=== PATIENT | female | born 1955 | race American Indian/Alaskan Native ===

== ENCOUNTER 2018-06-13 10:55 | Emergency (ER) | payer MEDICAID ==
--- NOTE | 2018-06-13 12:10 | Emergency Department Report ---
ED Lower Extremity HPI - General Chief Complaint: Extremity Injury, Lower Stated Complaint: TWISTED (R) KNEE Time Seen by Provider: 06/13/18 11:40 Source: patient Mode of arrival: Wheelchair Limitations: No Limitations - History of Present Illness Initial Comments: Patient is a 62-year-old female that presents emergency room with complaints of right knee pain started yesterday. Patient states the pain is 10 out of 10 and is worsening. Patient states she was raking leaves yesterday afternoon and twisted her knee. Patient denies fall. Patient denies trauma. Patient denies loss of consciousness. Patient denies chest pain shortness of breath. Patient states the right knee is swelling as well. MD Complaint: knee injury -: Sudden Injury: Knee: Right Type of Injury: eversion Place: home Severity: severe Severity scale (0 -10): 10 Improves With: rest Worsens With: weight bearing, movement, palpation Context: other (twisting injury) Associated Symptoms: swelling, able to partially bear weight. denies: numbness, tingling - Related Data Previous Rx's Medication Instructions Recorded Last Taken Type Tramadol HCl [Ultram] 50 mg PO Q4HR PRN #12 tablet 06/13/18 Unknown Rx Allergies Allergy/AdvReac Type Severity Reaction Status Date / Time No Known Allergies Allergy Unverified 06/13/18 11:07 ED Review of Systems ROS: Stated complaint: TWISTED (R) KNEE Other details as noted in HPI Constitutional: denies: chills, fever Eyes: denies: eye pain, eye discharge, vision change ENT: denies: ear pain, throat pain Respiratory: denies: cough, shortness of breath, wheezing Cardiovascular: denies: chest pain, palpitations Endocrine: no symptoms reported Gastrointestinal: denies: abdominal pain, nausea, diarrhea Genitourinary: denies: urgency, dysuria, discharge Musculoskeletal: denies: back pain, joint swelling, arthralgia Skin: denies: rash, lesions Neurological: denies: headache, weakness, paresthesias Psychiatric: denies: anxiety, depression Hematological/Lymphatic: denies: easy bleeding, easy bruising ED Past Medical Hx - Past Medical History Previous Medical History?: Yes Hx Hypertension: Yes Hx Diabetes: Yes Hx COPD: Yes Additional medical history: MV prolapse - Surgical History Past Surgical History?: No - Family History Family history: no significant - Social History Smoking Status: Never Smoker Substance Use Type: None - Medications Home Medications: Home Medications Medication Instructions Recorded Confirmed Last Taken Type Tramadol HCl [Ultram] 50 mg PO Q4HR PRN #12 tablet 06/13/18 Unknown Rx ED Physical Exam - General Limitations: No Limitations General appearance: alert, in no apparent distress - Head Head exam: Present: atraumatic, normocephalic - Eye Eye exam: Present: normal appearance - ENT ENT exam: Present: mucous membranes moist - Neck Neck exam: Present: normal inspection - Respiratory Respiratory exam: Present: normal lung sounds bilaterally. Absent: respiratory distress - Cardiovascular Cardiovascular Exam: Present: regular rate, normal rhythm. Absent: systolic murmur, diastolic murmur, rubs, gallop - GI/Abdominal GI/Abdominal exam: Present: soft, normal bowel sounds - Extremities Exam Extremities exam: Present: tenderness (right knee tenderness. Right knee swelling noted), joint swelling (right knee swelling noted. Other joints within normal limits). Absent: normal capillary refill, pedal edema, calf tenderness - Back Exam Back exam: Present: normal inspection - Neurological Exam Neurological exam: Present: alert, oriented X3 - Psychiatric Psychiatric exam: Present: normal affect, normal mood - Skin Skin exam: Present: warm, dry, intact, normal color. Absent: rash ED Course Vital Signs 06/13/18 06/13/18 11:05 13:00 Temperature 97.9 F 98.5 F Pulse Rate 94 H 70 Respiratory 18 13 Rate Blood Pressure 155/84 Blood Pressure 144/82 [Left] O2 Sat by Pulse 92 99 Oximetry - Reevaluation(s) Reevaluation #1: Right knee x-ray pending 06/13/18 12:10 Discussed results with patient. Patient's x-rays negative for fracture. Patient will need follow-up with an orthopedist as well as an MRI. In discharge instructions. Patient voiced understanding of discharge instructions. 06/13/18 12:42 Knee immobilizer placed by nurse. Knee immobilizer in good place and neurovascular still intact. Knee immobilizer was placed due to possible knee instability and comfort. Patient will be discharged home. Patient given disc harged. 06/13/18 12:50 ED Lower Extremity MDM - Radiology Data Radiology results: report reviewed, image reviewed RIGHT KNEE RADIOGRAPHS INDICATION: Trauma, pain. COMPARISON: None similar at this institution. FINDINGS: AP, lateral and oblique right knee radiographs suggest greatest, moderate to severe lateral compartment narrowing with possible slight subluxation of the knee joint on the frontal view. Multiple degenerative spurring also noted, most involving the lateral compartment and also the tibial spines and superior and inferior patellar articular poles. Superior patellar enthesophyte also noted as also couple of small suprapatellar ossifications measuring up to 0.7 cm. Small suprapatellar effusion also suspected. Osteopenia/osteoporosis. CONCLUSION: Right knee osteoarthritic changes noted with greatest involvement of the lateral compartment, as detailed above. Please correlate. - Medical Decision Making Patient is a 62-year-old female that presents emergency room with right knee pain. Patient is finding consistent with a right knee sprain. Patient stable for discharge. Patient to be discharged home with discharge instructions. Patient instructed to follow up with orthopedist and possible. Patient referred to Dr. Strauss. - Differential Diagnosis E sprain. Knee pain. Internal derangement of knee Critical care attestation.: If time is entered above; I have spent that time in minutes in the direct care of this critically ill patient, excluding procedure time. ED Disposition Clinical Impression: Knee pain Qualifiers: Chronicity: acute Laterality: right Qualified Code(s): M25.561 - Pain in right knee Knee sprain Qualifiers: Encounter type: initial encounter Involved ligament of knee: unspecified ligament Laterality: right Qualified Code(s): S83.91XA - Sprain of unspecified site of right knee, initial encounter Disposition: TO HOME OR SELFCARE Is pt being admited?: No Does the pt Need Aspirin: No Condition: Stable Instructions: Knee Sprain (ED), Knee Pain (ED) Additional Instructions: Patient to follow-up with primary care in 2-3 days. Patient to follow up with orthopedist in 2-3 days. Patient to return to ER if condition worsens. Patient to take Tylenol or ibuprofen when necessary for pain. Patient to rest. Patient to elevate. Patient to R.I.C.E. Prescriptions: Tramadol HCl [Ultram] 50 mg PO Q4HR PRN #12 tablet PRN Reason: Pain , Severe (7-10) Referrals: RAYSHAWN STRAUSS MD [Staff Physician] - 2-3 Days Time of Disposition: 12:45
--- NOTE | 2018-06-13 12:28 | XRay Report ---
RIGHT KNEE RADIOGRAPHS INDICATION: Trauma, pain. COMPARISON: None similar at this institution. FINDINGS: AP, lateral and oblique right knee radiographs suggest greatest, moderate to severe lateral compartment narrowing with possible slight subluxation of the knee joint on the frontal view. Multiple degenerative spurring also noted, most involving the lateral compartment and also the tibial spines and superior and inferior patellar articular poles. Superior patellar enthesophyte also noted as also couple of small suprapatellar ossifications measuring up to 0.7 cm. Small suprapatellar effusion also suspected. Osteopenia/osteoporosis. CONCLUSION: Right knee osteoarthritic changes noted with greatest involvement of the lateral compartment, as detailed above. Please correlate. Thank you for the opportunity to participate in this patient's care.
[2018-06-15 11:55] VITALS: BP 144/82
== END 2018-06-13 13:00 | disposition home or self-care (01) ==
LOC: ED 10:55
DX: S83.91XA Sprain of unspecified site of right knee, initial encounter (principal); I10 Essential (primary) hypertension; E11.9 Type 2 diabetes mellitus without complications; J44.9 Chronic obstructive pulmonary disease, unspecified; X50.9XXA Other and unspecified overexertion or strenuous movements or postures, initial encounter; Y93.89 Activity, other specified; Y92.89 Other specified places as the place of occurrence of the external cause; Y99.8 Other external cause status